=== PATIENT | female | born 1960 | race Hispanic/Latino ===

== ENCOUNTER → 2018-03-15 | Outpatient (CLI) | payer OTHER | END | disposition home or self-care (01) | LOC: RAH 14:27 | PROVIDERS: ATTEND Internal Medicine Hematology & Oncology | DX: K56.699 Other intestinal obstruction unspecified as to partial versus complete obstruction (principal); D64.9 Anemia, unspecified; N28.89 Other specified disorders of kidney and ureter | CPT/HCPCS: 76770 ==

== ENCOUNTER 2018-05-02 16:09 | Emergency (ER) | payer OTHER ==
[2018-05-02] MEDS ORDERED: METOCLOPRAMIDE 10 MG/2 ML VIAL ONE (16:32)
[2018-05-02] MEDS ORDERED: KETOROLAC TROMETHAMINE 15MG/ML ONE (16:33)
[2018-05-02] MEDS ORDERED: TRAMADOL HCL 50 MG TABLET ONE (16:33)
[2018-05-02 16:37] LABS: BASOPHILS % (AUTO) 0.7 % (0.0-5.0); EOSINOPHILS % (AUTO) 2.2 % (0.0-8.0); HEMATOCRIT 32.8 % (36-48); LYMPHOCYTES % (AUTO) 15.3 % (21.0-51.0); MEAN CORPUSCULAR HEMOGLOBIN 29.2 pg (27.0-33.0); MEAN CORPUSCULAR HGB CONC 33.3 g/dL (32.0-36.0); MEAN CORPUSCULAR VOLUME 87.6 fL (79-99); MONOCYTES % (AUTO) 6.6 % (3.0-13.0); NEUTROPHILS % (AUTO) 75.2 % (40.0-77.0); NUCLEATED RED BLOOD CELLS 0.2 % (0.0-0.19); PLATELET COUNT (AUTO) 261 K/uL (130-400); RED BLOOD CELL COUNT(AUTO) 3.75 MIL/uL (4.00-5.50); RED CELL DISTRIBUTION WIDTH 14.2 % (11.0-15.5); WHITE BLOOD COUNT (AUTO) 9.3 K/uL (4.8-10.8)
[2018-05-02 16:48] LABS: CREATININE 1.5 mg/dL (0.5-1.5); POTASSIUM 4.4 mmol/L (3.5-5.1)
[2018-05-02 16:52] LABS: ALBUMIN 3.5 g/dL (3.5-5.0); BILIRUBIN,TOTAL 0.2 mg/dL (0.2-1.0); TOTAL PROTEIN, SERUM 7.2 g/dL (6.0-8.3)
== END 2018-05-02 21:35 | disposition home or self-care (01) ==
LOC: EDH 16:09
DX: R07.89 Other chest pain (principal); K08.89 Other specified disorders of teeth and supporting structures; I10 Essential (primary) hypertension; E11.9 Type 2 diabetes mellitus without complications; E78.5 Hyperlipidemia, unspecified
CPT/HCPCS: 36415; 71045; 80053; 84484 ×2; 85025; 93005; 96374; 96375; 99284; J1885; J2765

== ENCOUNTER → 2018-07-02 | Outpatient (CLI) | payer OTHER | END | disposition home or self-care (01) | LOC: RAH 08:19 | PROVIDERS: ATTEND Internal Medicine Hematology & Oncology | DX: D17.9 Benign lipomatous neoplasm, unspecified (principal); N28.1 Cyst of kidney, acquired; Z87.440 Personal history of urinary (tract) infections | CPT/HCPCS: 76770 ==

== ENCOUNTER → 2018-09-06 | Outpatient (CLI) | payer OTHER ==
[2018-09-06 17:43] LABS: CREATININE 1.1 mg/dL (0.5-1.5); POTASSIUM 3.7 mmol/L (3.5-5.1)
== END | disposition home or self-care (01) ==
LOC: LAB 16:32
PROVIDERS: ATTEND Urology
DX: N20.0 Calculus of kidney (principal)
CPT/HCPCS: 36415; 80048

== ENCOUNTER → 2018-10-13 | Outpatient (CLI) | payer OTHER ==
[~2018-10-13] MED LIST: IOHEXOL-350 75 ML VIAL IV ONE
== END | disposition home or self-care (01) ==
LOC: RAH 09:15
PROVIDERS: ATTEND Urology
DX: N28.89 Other specified disorders of kidney and ureter (principal); I11.9 Hypertensive heart disease without heart failure; Z90.49 Acquired absence of other specified parts of digestive tract; I70.0 Atherosclerosis of aorta
CPT/HCPCS: 74178; Q9967

== ENCOUNTER → 2019-09-09 | Outpatient (CLI) | payer OTHER ==
[~2019-09-09] MED LIST changes: +CITA40TA6 PO; +DULA0.75 SQ; +FENO134C PO; +GLYB1TAB32 PO; -IOHEXOL-350 75 ML VIAL IV ONE; +LINA5TAB PO; +LISI10TA7 PO; +METO100T14 PO; +SIMV40TA59 PO; +[UNRECOGNIZED DRUG - OTHER] PO
[2019-09-09 09:35] LABS: BASOPHILS % (AUTO) 0.6 % (0.0-5.0); EOSINOPHILS % (AUTO) 3.7 % (0.0-8.0); HEMATOCRIT 36.7 % (36-48); LYMPHOCYTES % (AUTO) 28.8 % (21.0-51.0); MEAN CORPUSCULAR HEMOGLOBIN 26.9 pg (27.0-33.0); MEAN CORPUSCULAR HGB CONC 31.1 g/dL (32.0-36.0); MEAN CORPUSCULAR VOLUME 86.6 fL (79-99); MONOCYTES % (AUTO) 8.1 % (3.0-13.0); NEUTROPHILS % (AUTO) 58.4 % (40.0-77.0); PLATELET COUNT (AUTO) 311 K/uL (130-400); RED BLOOD CELL COUNT(AUTO) 4.24 MIL/uL (4.00-5.50); RED CELL DISTRIBUTION WIDTH 14.6 % (11.0-15.5); WHITE BLOOD COUNT (AUTO) 8.4 K/uL (4.8-10.8)
[2019-09-09 10:26] LABS: CREATININE 1.4 mg/dL (0.5-1.5); POTASSIUM 4.3 mmol/L (3.5-5.1)
== END | disposition home or self-care (01) ==
LOC: LAB 08:39
PROVIDERS: ATTEND Urology
DX: N39.0 Urinary tract infection, site not specified (principal); D30.00 Benign neoplasm of unspecified kidney
CPT/HCPCS: 36415; 80048; 85025

== ENCOUNTER 2020-03-12 10:16 | Emergency (ER) | payer OTHER | END 2020-03-12 12:54 | disposition home or self-care (01) | LOC: EDH 10:16 | DX: S20.211A Contusion of right front wall of thorax, initial encounter (principal); S40.011A Contusion of right shoulder, initial encounter; S40.021A Contusion of right upper arm, initial encounter; I10 Essential (primary) hypertension; E11.9 Type 2 diabetes mellitus without complications; E78.5 Hyperlipidemia, unspecified; Z79.899 Other long term (current) drug therapy; Z88.1 Allergy status to other antibiotic agents; V49.19XA Passenger injured in collision with other motor vehicles in nontraffic accident, initial encounter; Y93.89 Activity, other specified; Y92.89 Other specified places as the place of occurrence of the external cause; Y99.8 Other external cause status | CPT/HCPCS: 71046; 71100; 73030; 73060; 93005 ==

== ENCOUNTER 2024-10-19 14:12 | Emergency (ER) | payer OTHER ==
[~2024-10-19] VITALS: Ht 157.5 cm; Wt 83.5 kg
[~2024-10-19 14:12] MED LIST changes: +CITA-108 PO; -CITA40TA6 PO; -FENO134C PO; +FENO134C21 PO; +GLYB-173 PO; -GLYB1TAB32 PO; +LISI10TA24 PO; -LISI10TA7 PO; +NITR100C4 PO
[2024-10-19 15:01] LABS: BASOPHILS # (AUTO) 0.04 K/uL (0.00-0.20); BASOPHILS % (AUTO) 0.6 % (0.0-5.0); EOSINOPHILS # (AUTO) 0.24 K/uL (0.00-0.70); EOSINOPHILS % (AUTO) 3.6 % (0.0-8.0); HEMATOCRIT 28.9 % (36-48); IMMATURE GRANULOCYTE ABSOLUTE 0.04 K/uL (0-1); LYMPHOCYTES # (AUTO) 1.3 K/uL (1.0-4.8); LYMPHOCYTES % (AUTO) 18.6 % (21.0-51.0); MEAN CORPUSCULAR HEMOGLOBIN 30.7 pg (27.0-33.0); MEAN CORPUSCULAR HGB CONC 31.8 g/dL (32.0-36.0); MEAN CORPUSCULAR VOLUME 96.3 fL (79-99); MONOCYTES # (AUTO) 0.6 K/uL (0.1-1.0); MONOCYTES % (AUTO) 8.9 % (3.0-13.0); NEUTROPHILS # (AUTO) 4.6 K/uL (1.8-7.7); NEUTROPHILS % (AUTO) 67.7 % (40.0-77.0); PLATELET COUNT (AUTO) 241 K/uL (130-400); RED CELL DISTRIBUTION WIDTH 18.2 % (11.0-15.5); WHITE BLOOD COUNT (AUTO) 6.8 K/uL (4.8-10.8)
[2024-10-19 15:15] LABS: CREATININE 1.1 mg/dL (0.5-1.0); POTASSIUM 4.9 mmol/L (3.5-5.1)
--- NOTE | 2024-10-19 15:16 | HMCIMG ---
Exam Type: CHEST 1VW Clinical Information: sob Comparison: None Findings: The lungs are clear of infiltrates. The heart is enlarged. Bony and soft tissue structures of the chest wall are unremarkable. IMPRESSION: Cardiomegaly. Clear lungs.
[2024-10-19 15:35] LABS: B-TYPE NATRIURETIC PEPTIDE 195 pg/mL (0-100)
--- NOTE | 2024-10-19 15:35 | EKG ---
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
[2024-10-19 16:21] VITALS: BP 175/85; PULSE 73; RESP 22; TEMP 98.6; O2SAT 99
[2024-10-19] MEDS: furoSEMIDE 20MG VIAL IV STA (17:05)
--- NOTE | 2024-10-19 17:07 | ERN ---
ED Note History of Present Illness Stated Complaint: PHYSICIANS REFERRAL FOR SOB, LOWER EXTREMITY SWELL Chief Complaint: Shortness of Breath Time Seen by MD: 14:22 Time Seen by Midlevel: 14:28 Dictation: 64-year-old female coming in for evaluation of lower extremity bilaterally swelling going on for 3-4 days. Patient is states she recently got a EPO injection by Dr. Becerra states she began with swelling then. Patient states she sees doctors her med because she has low immune system. Patient states the swelling is usually occurs after the injection. Dr. Becerra sent her to her PCP and her sit PCP's center here for further evaluation. Patient states she feels her legs are swelling. Denies having any chest pain, chest discomfort, fever, cough, congestion. Allergies: Coded Allergies: ceftriaxone (Verified Allergy, Unknown, 05/13/19) Uncoded Allergies: ROCEP (Allergy, Intermediate, RASH, 09/08/21) Home Meds Active Scripts Nitrofurantoin Monohyd/M-Cryst (Macrobid 100 mg Capsule) 100 Mg Capsule, 100 MG PO BIDPC for 7 Days, #14 CAP 0 Refills Prov:KANA WOLFE DO 09/08/21 Reported Medications Citalopram Hydrobromide (Citalopram HBr) 40 Mg Tablet, 40 MG PO DAILY for DEPRESSION, TAB 05/13/19 Dulaglutide (Trulicity) 0.75 Mg/0.5 Ml Pen.injctr, 0.75 MG SQ WEEKLY 05/13/19 [Spectrazyme] No Conflict Check, 1 TAB PO QWEEK PRN for DIARRHEA 05/13/19 Simvastatin (ZOCOR) 40 Mg Tablet, 40 MG PO HS, TAB 05/13/19 Glyburide/Metformin HCl (Glyburide-Metformin 5-500 mg) 1 Each Tablet, 2 EACH PO BID, TAB 05/13/19 Linagliptin (Tradjenta) 5 Mg Tablet, 5 MG PO DAILY, TAB 05/13/19 Fenofibrate,Micronized (Fenofibrate) 134 Mg Capsule, 134 MG PO DAILY, CAP 05/13/19 Metoprolol Tartrate (Metoprolol Tartrate) 100 Mg Tablet, 100 MG PO BID, TAB 05/13/19 Lisinopril (Lisinopril) 10 Mg Tablet, 10 MG PO DAILY, TAB 05/13/19 Past Medical History Past Medical History: Diabetes-Type II Surgical History: Cholecystectomy Family History: HTN Social History: Negative, Lives with family Review of System Dictation Constitutional: Negative for fever,chills, and weight loss Eyes: Negative for injury, pain,redness, and discharge ENT: Negative for injury,pain or swelling Cardiovascular: Negative for chest pain, palpitations, and edema Respiratory: Negative for shortness of breath, cough, and wheezing, Abdomen/GI: Negative for abdominal pain, nausea, vomiting, diarrhea, and constipation Back: Negative for injury and pain : Negative for injury, bleeding and discharge MS/Extremity: Negative for injury and deformity, complaining of swelling to bilateral lower legs Skin: Negative for rash, and discoloration Neuro: Negative for headache, weakness, numbness, tingling, and seizure Psych: Negative for suicide ideation, homicidal ideation, and hallucinations Review of Systems: was completed Initial Vital Sign VS Vital Signs Date Time Temp Pulse Resp B/P (MAP) Pulse Ox O2 Delivery O2 Flow Rate FiO2 10/19/24 14:24 98.2 72 22 185/85 97 Room Air 10/19/24 16:21 0 21 Physical Exam Dictation General: awake, alert, NAD Head/Face: Normocephalic, atraumatic Eyes: PERRL, EOMI, vision at baseline ENT: oral cavity clear, TMs clear, no signs of infection Neck: Trachea midline, supple, no nuchal rigidity Cardiovascular: RRR, normal S1/S2, No MRGs, no JVD Respiratory: CTAB, no respiratory distress, No rales or wheezes Abdomen: Soft, non-tender, non-distended, normal bowel sounds, no guarding or rebound. Skin: Warm, dry, normal turgor, no rash MS/Extremity: Pulses equal, no cyanosis, neurovascular intact, FROM, plus two pitting edema to bilateral lower extremity, no redness, open wounds, no suspici on for infectious process. Neuro: COAx4, GCS 15, strength 5/5, CN 2-12 intact, normal cerebellar exam, normal gait, Psych: Normal behavior, mood, and affect normal Results (Laboratory/Radiology) Laboratory/Radiology Laboratory Tests Test 10/19/24 14:50 White Blood Count 6.8 K/uL (4.8-10.8) Red Blood Count 3.00 MIL/uL (4.00-5.50) L Hemoglobin 9.2 g/dL (12.0-16.0) L Hematocrit 28.9 % (36-48) L Mean Corpuscular Volume 96.3 fL (79-99) Mean Corpuscular Hemoglobin 30.7 pg (27.0-33.0) Mean Corpuscular Hemoglobin Concent 31.8 g/dL (32.0-36.0) L Red Cell Distribution Width 18.2 % (11.0-15.5) H Platelet Count 241 K/uL (130-400) Mean Platelet Volume 10.4 fL (7.5-10.5) Immature Granulocyte % (Auto) 0.6 % (0-1) Neutrophils (%) (Auto) 67.7 % (40.0-77.0) Lymphocytes (%) (Auto) 18.6 % (21.0-51.0) L Monocytes (%) (Auto) 8.9 % (3.0-13.0) Eosinophils (%) (Auto) 3.6 % (0.0-8.0) Basophils (%) (Auto) 0.6 % (0.0-5.0) Neutrophils # (Auto) 4.6 K/uL (1.8-7.7) Lymphocytes # (Auto) 1.3 K/uL (1.0-4.8) Monocytes # (Auto) 0.6 K/uL (0.1-1.0) Eosinophils # (Auto) 0.24 K/uL (0.00-0.70) Basophils # (Auto) 0.04 K/uL (0.00-0.20) Absolute Immature Granulocyte (auto 0.04 K/uL (0-1) Nucleated Red Blood Cells 0.0 % (0.0-0.19) Red Blood Cell Morphology See comments Sodium Level 141 mmol/L (136-145) Potassium Level 4.9 mmol/L (3.5-5.1) Chloride Level 106 mmol/L (101-111) Carbon Dioxide Level 30 mmol/L (21-32) Blood Urea Nitrogen 34 mg/dL (7-18) H Creatinine 1.1 mg/dL (0.5-1.0) H Glomerular Filtration Rate Calc 56 mL/min (>90) Random Glucose 226 mg/dL (70-105) H Total Calcium 9.1 mg/dL (8.5-10.1) Troponin I High Sensitivity 8 ng/L (4-50) B-Type Natriuretic Peptide 195 pg/mL (0-100) H Labs Reviewed?: Yes EKG Comment: EKGs done at 3:08 p.m., sinus rhythm at a rate of 72, left ventricular hypertrophy, anterior Q-waves possibly due to LVH. No STEMI interpreted by ERMD CBC shows no leukocytosis, hemoglobin of the night and hematocrit of 28, no thrombocytopenia. Chemistry shows mild elevation of creatinine of 1.1. Glucose of 226. BNP of 195. Discussed case with the ER MD. Romeoay to patient to receive one dose of Lasix in the emergency room and discharge patient for outpatient follow up. Discussed findings with the patient, educated patient she can also try using compression socks or bandage just to help with swelling and avoid having legs and dependent position for long periods of time. Educated on signs and symptoms of return back to the ER like sudden onset of shortness a breath, chest pain, fevers, nausea vomiting. Patient verbalized understanding, answered all questions. ED Course ED Course Orders Procedure Category Date Status Time Cbc With Differential LAB 10/19/24 Complete 14:39 Basic Metabolic Panel LAB 10/19/24 Complete 14:39 B-Type Natriuretic LAB 10/19/24 Complete Peptide 14:39 Troponin I High LAB 10/19/24 Complete Sensitivity 14:39 Chest 1vw RAD 10/19/24 Resulted 14:39 12 Lead Ekg Tracing- EKG 10/19/24 Resulted Technical 14:39 Furosemide 20mg Vial PHA 10/19/24 Complete (Lasix 20mg Vial) 16:38 Current Medications Medications (Trade) Dose Ordered Sig/Nita Route PRN Reason Start Time Stop Time Status Last Admin Dose Admin Furosemide (LASix 20MG VIAL) 20 mg ONCE STAT IV 10/19/24 16:38 10/19/24 16:42 DC Vital Signs Date Time Temp Pulse Resp B/P (MAP) Pulse Ox O2 Delivery O2 Flow Rate FiO2 10/19/24 16:21 98.6 73 22 175/85 99 Room Air* 0 21 10/19/24 14:24 98.2 72 22 185/85 97 Room Air Medical Decision Making MDM MDM: 64-year-old female coming in for evaluation of lower extremity bilaterally swelling going on for 3-4 days. Patient is states she recently got a EPO injection by Dr. Becerra states she began with swelling then. Patient states she sees doctors her med because she has low immune system. Patient states the swelling is usually occurs after the injection. Dr. Becerra sent her to her PCP and her sit PCP's center here for further evaluation. Patient states she feels her legs are swelling. Denies having any chest pain, chest discomfort, fever, cough, congestion.CBC shows no leukocytosis, hemoglobin of the night and hematocrit of 28, no thrombocytopenia. Chemistry shows mild elevation of cre atinine of 1.1. Glucose of 226. BNP of 195. Discussed case with the ER MD. Okay to patient to receive one dose of Lasix in the emergency room and discharge patient for outpatient follow up. Discussed findings with the patient, educated patient she can also try using compression socks or bandage just to help with swelling and avoid having legs and dependent position for long periods of time. Educated on signs and symptoms of return back to the ER like sudden onset of shortness a breath, chest pain, fevers, nausea vomiting. Patient verbalized understanding, answered all questions. Differential diagnosis: Fluid overload, kidney failure, educated reaction Rationale: Tests considered and ordered secondary to shared decision making include: Previous outside records reviewed: Old ER visits. Risk of complication and/or morbidity or mortality of patient management: None Medications-Per medication reconciliation Need for hospitalization: Patient does not meet criteria for hospitalization. Need for emergency major/minor surgery: No There are no social concerns with this patient. Prescription drug management Prescriptions will include symptomatic care Patient's prior external medical records from other ER visits were reviewed by me as indicated. Prior testing and results from previous visits were reviewed. Prior tests were taken into account with medical decision making and resource utilization, independent historian/historians were used to obtain complete medical history. I independently interpreted the test that were performed, results were reviewed by me and considered findings on radiology if ordered. Medical management and examination interpretation discussions were had by me with other qualified healthcare professionals as indicated for the patient's care. DX & DISP Disposition: Discharge Departure Impression: Primary Impression: Lower extremity edema Condition: Stable Additional Instructions: Use compression stockings, avoid having your legs in depended position to help decrease swelling. Follow up with PCP . Referrals: SELF,REFERRAL (PCP) Time of Disposition: 17:05 I have reviewed the case, and I agree with, Diagnosis and Plan KERRY KIDD NP Oct 19, 2024 17:07
== END 2024-10-19 17:20 | disposition home or self-care (01) ==
LOC: EDH 14:12
DX: R60.0 Localized edema (principal); E11.9 Type 2 diabetes mellitus without complications; Z79.84 Long term (current) use of oral hypoglycemic drugs; Z79.85 Long-term (current) use of injectable non-insulin antidiabetic drugs; Z79.899 Other long term (current) drug therapy; Z88.1 Allergy status to other antibiotic agents; Z90.49 Acquired absence of other specified parts of digestive tract
CPT/HCPCS: 99285; 84484; 80048; 83880; 85025; 36415; 71045; 96374; 93005; J1940